=== PATIENT | female | born 1950 | race Caucasian/White ===

== ENCOUNTER 2017-11-12 00:47 | Day surgery (SDC) | payer MEDICARE ==
[2017-11-11 08:06] LABS: BASOPHILS ABSOLUTE AUTO 0.03 K/mm3 (0.00-0.23); BASOPHILS PERCENT AUTO 1 % (0-2); EOSINOPHILS ABSOLUTE AUTO 0.04 K/mm3 (0.00-0.68); EOSINOPHILS PERCENT AUTO 2 % (0-6); Hemoglobin 8.2 g/dL (11.5-16.0); IMMATURE GRAN ABSOLUTE AUTO 0.01 K/mm3 (0.00-0.10); IMMATURE GRAN PERCENT AUTO 0 % (0-1); LYMPHOCYTES ABSOLUTE AUTO 1.18 K/mm3 (0.84-5.20); LYMPHOCYTES PERCENT AUTO 48 % (21-46); MONOCYTES ABSOLUTE AUTO 0.35 K/mm3 (0.16-1.47); MONOCYTES PERCENT AUTO 14 % (4-13); Mean Corpuscular HGB 37.3 pg (26.0-34.0); Mean Corpuscular HGB Conc 34.2 g/dL (31.5-36.5); Mean Corpuscular Volume 109 fL (80-100); NEUTROPHILS ABSOLUTE AUTO 0.87 K/mm3 (1.96-9.15); NEUTROPHILS PERCENT AUTO 35 % (41-73); Platelet Count 251 K/mm3 (150-400); RDW Coefficient Variation 15.2 % (11.7-14.2); RDW Standard Deviation 60.4 fL (35.1-46.3); White Blood Cell Count 2.48 K/mm3 (4.00-11.30)
[2017-11-11 08:15] LABS: Alanine Aminotransfer (ALT/SGP 41 U/L (12-78); Albumin, Blood 3.2 g/dL (3.4-5.0); Albumin/Globulin Ratio 1.1 (0.8-1.8); Alk Phos 65 U/L (50-136); Anion Gap 8 mmol/L (6-16); Aspartate Aminotrans (AST/SGOT 29 U/L (12-37); Bilirubin, Total 0.3 mg/dL (0.1-1.0); Blood Urea Nitrogen 8 mg/dL (8-24); Bun/Creatinine Ratio 11.8 (12.0-20.0); CO2, Blood 26 mmol/L (21-32); Calcium, Blood 8.5 mg/dL (8.5-10.1); Chloride, Blood 100 mmol/L (98-108); Creatinine, Blood 0.68 mg/dL (0.40-1.00); Glomerular Filtration Rate >60 (60-); Glucose, Blood 110 mg/dL (70-99); Potassium, Blood 3.7 mmol/L (3.5-5.5); Sodium, Blood 134 mmol/L (136-145); Total Protein, Blood 6.2 g/dL (6.4-8.2)
[2017-11-11 11:00] LABS: Percent Saturation 24.1 % (15.0-50.0)
[~2017-11-12 00:47] MED LIST: ASCO500 PO; ASPI81CH PO; CHOL10002 PO; Calcium +D & M1 EACH PO; DILT60 PO; Hair, Skin & N1 EACH PO; METO25ER PO; NEBI10 PO; OLME20 PO; PRAV20 PO; PRED10 PO; RANI150 PO; TOBDEXOPO BOTHEYES; TOCO1000 PO; TUMS200 MG PO; VOLTAREN GEL 1% TOP
== END 2017-11-12 22:52 | disposition home or self-care (01) ==
LOC: ATC 00:47 → LAB FUT 10-28 10:50 → EDSTATUS 10-28 10:50
PROVIDERS: Internal Medicine Hematology & Oncology
PROC: 30233N1 Transfusion of Nonautologous Red Blood Cells into Peripheral Vein, Percutaneous Approach (ICD-10-PCS; principal; 2017-11-12)
DX: C50.812 Malignant neoplasm of overlapping sites of left female breast (principal); C77.3 Secondary and unspecified malignant neoplasm of axilla and upper limb lymph nodes; D64.81 Anemia due to antineoplastic chemotherapy; Z79.899 Other long term (current) drug therapy; Z17.0 Estrogen receptor positive status [ER+]
CPT/HCPCS: 36415; 36430; 80053; 82607; 82728; 82746; 83540; 83550; 85025; 86850; 86900; 86901; 86920; J1642; J7030; P9016

== ENCOUNTER 2019-07-13 13:00 | Day surgery (SDC) | payer MEDICARE ==
[~2019-07-13] VITALS: Ht 157.5 cm; Wt 56.9 kg
[~2019-07-13 13:00] MED LIST changes: +DILTIAZEM 24HR240 M1 PO; +LETR2.5 PO; +LOW DOSE ASPIRI81 MG PO; +PROLIA60 MG/1 ML SC; +VOLTAREN100 GM TOP
== END 2019-07-13 15:05 | disposition home or self-care (01) ==
LOC: ORSCSDS 13:00
PROVIDERS: Internal Medicine Gastroenterology
PROC: 0DJD8ZZ Inspection of Lower Intestinal Tract, Via Natural or Artificial Opening Endoscopic (ICD-10-PCS; principal; 2019-07-13 14:15)
DX: Z12.11 Encounter for screening for malignant neoplasm of colon (principal); K57.30 Diverticulosis of large intestine without perforation or abscess without bleeding; I10 Essential (primary) hypertension; E78.5 Hyperlipidemia, unspecified; Z79.899 Other long term (current) drug therapy
CPT/HCPCS: J2704; J7120

== ENCOUNTER 2020-04-27 07:48 | Day surgery (SDC) | payer MEDICARE ==
[~2020-04-27] VITALS: Ht 157.5 cm; Wt 56.5 kg
[~2020-04-27 07:48] MED LIST changes: +FAMO20 PO
== END 2020-04-27 09:34 | disposition home or self-care (01) ==
LOC: ORSCSDS 07:48
PROVIDERS: Ophthalmology
PROC: 08RK3JZ Replacement of Left Lens with Synthetic Substitute, Percutaneous Approach (ICD-10-PCS; principal; 2020-04-27 09:00)
DX: H25.12 Age-related nuclear cataract, left eye (principal); I10 Essential (primary) hypertension; E78.00 Pure hypercholesterolemia, unspecified; Z79.899 Other long term (current) drug therapy
CPT/HCPCS: J2001; J2250; J3010; J3301; J7040; V2632